=== PATIENT | female | born 1955 | race Caucasian/White ===

== ENCOUNTER 2017-12-17 03:43 | Outpatient (RCR) | payer OTHER, SELFPAY | END 2017-12-17 23:59 | disposition home or self-care (01) | LOC: PRC 03:43 | DX: J44.9 Chronic obstructive pulmonary disease, unspecified (principal); Z51.89 Encounter for other specified aftercare | CPT/HCPCS: G0424 ==

== ENCOUNTER 2018-01-13 13:42 | Outpatient (RCR) | payer OTHER, SELFPAY | END 2018-01-16 23:59 | disposition home or self-care (01) | LOC: PRC 13:42 | DX: J44.9 Chronic obstructive pulmonary disease, unspecified (principal); Z51.89 Encounter for other specified aftercare | CPT/HCPCS: G0424 ==

== ENCOUNTER 2019-06-09 11:33 | Emergency (ER) | payer OTHER, SELFPAY ==
[2019-06-09 11:00] VITALS: BP 152/81; PULSE 75; RESP 18; TEMP 35.8; O2SAT 98
[2019-06-09 11:25] LABS: Abs Immature Grans 0.01 k/cumm (0.0-0.09); Absolute Basophil Count 0.02 k/cumm (0.0-0.2); Absolute Eosinophil Count 0.11 k/cumm (0.0-0.7); Absolute Lymphocyte Count 1.77 k/cumm (1.2-3.4); Absolute Monocyte Count 0.49 k/cumm (0.11-0.7); Absolute Neutrophil Count 4.59 k/cumm (1.2-6.7); Basophils % 0.3; Eosinophils % 1.6; HCT 40.8 % (36.0-46.0); HGB 13.4 g/dL (12.0-15.5); Immature Grans % 0.1 %; Lymphocytes % 25.3; Mean Corp. HGB Concentration 32.8 g/dL (32.0-36.0); Mean Corpuscular Hemoglobin 27.9 pg (27.0-33.0); Mean Platelet Volume 9.8 fL (8.0-11.0); Neutrophils % 65.7; Platelet Count 261 x1000/uL (130-400); RBC Distribution Width 13.9 % (11.7-14.6); White Blood Cell Count 6.99 k/cumm (4.4-10.8)
--- NOTE | 2019-06-09 11:30 | ED.GENADUL_ITS ---
Discharge Plan Disposition Patient Disposition: HOME Discharge Details Chief Complaint: Dizzy/Sync Clinical Impression: Vertigo Primary Care Provider: Radha Ricks ED Provider: Teja Calzada Home Meds and New Rx's Prescriptions: New meclizine 25 mg tablet 25 mg PO TID PRN (Reason: dizziness) Qty: 30 RF: 0 Continued albuterol sulfate [Proventil HFA] 1 PUFF HFA aerosol inhaler 200 puff Inhalation Q6H PRN PRNRF: 0 fluticasone propion-salmeterol [Advair Diskus] 250-50 mcg/dose Blister With Device 1 inh INHALATION BID RF: 0 Spiriva with HandiHaler 18 mcg Capsule, W/Inhalation Device 18 mcg INHALATION DAILY PRNRF: 0 Discharge Instructions Instructions: Vertigo (ED) Additional Instructions: Please rest over the next few days. No driving or operating heavy machinery until symptoms completely resolved. Take meclizine as prescribed. Please contact your primary care physician to arrange follow-up. Return to the ER for any worsening or new concerning symptoms. Stand Alone Forms: Physical Therapy Referral Discharge Data Discharge Date/Time-TO BE ENTERED AT DEPARTURE: 06/09/19 17:04 Medical Decision Making 11:35 --64-year-old female former smoker with emphysema, here with dizziness described as feeling of being drunk over the past 10 days. Concern for likely neurologic etiology: Consider peripheral vestibular neuritis versus central subacute ischemic cerebellar stroke/mass. Vertical nystagmus is concerning as is negative headimpulse concerning. Consider cardiac etiology. Screening ECG was reviewed and interpreted by me: Sinus rhythm 65 bpm, normal axis, T wave inversions noted V1 and V2, no significant change from prior ECG 09/02, low voltage. Will obtain MRI of the brain and diagnostic labs. --Labs reviewed and nondiagnostic. Patient reassessed and stable. Orthostatic vital signs normal. Brain MRI was reviewed and interpreted by radiology: Negative Suspect peripheral vertigo. Patient to be given meclizine 25 mg orally. 16:30 --patient reassessed and noted to have significant improvement after meclizine. Plan will be for discharge with outpatient follow-up. I will refer to physical therapy for vestibular rehab should symptoms persist. I will prescribe meclizine for symptomatic relief. Disposition decision was made weighing the risks and benefits of hospitalization versus outpatient treatment, the risk for further decompensation, and the patient's wishes. The patient was stable and requested discharge. Prior to discharge, my usual and customary return precautions were reviewed with the patient - this included follow-up instructions and reason to return to the emergency department if condition worsens, does not improve as expected, or other new concerns arise. HPI General Mode of arrival: ambulatory . Date/Time Provider Initiated Documentation: 06/09/19 13:51 . Limitations to Documentation: no limitations . Information obtained by: patient . HPI Narrative: 64-year-old female here with chief complaint of dizziness. Patient notes for the past 10 days she has been feeling drunk. She has not consumed any alcohol. She specifically notes difficulty with balance and also feels lightheaded. Patient notes worse with certain positions including standing. Patient attributes symptoms to statin therapy which she has been on for a few months. She states that when she stopped taking statin symptoms seem to improve. She has not been taking any for the past few days and symptoms seem to be improving and then and this morning symptoms worsened. She had mild associated nausea earlier. She is no longer nauseous. No associated headache. No numbness or weakness. No abdominal pain. No chest pain or shortness of breath. She does have chronic emphysema. Related Data Home Medications Medication Instructions Recorded Confirmed albuterol sulfate [Proventil HFA] 200 puff INHALATION Q6H PRN PRN 08/31/15 06/09/19 Spiriva with HandiHaler 18 mcg INHALATION DAILY PRN 06/09/19 06/09/19 fluticasone propion-salmeterol 1 inh INHALATION BID 06/09/19 06/09/19 [Advair Diskus] meclizine 25 mg PO TID PRN #30 tab 06/09/19 Previous Rx's Medication Instructions Recorded meclizine 25 mg PO TID PRN #30 tab 06/09/19 Allergies Allergy/AdvReac Type Severity Reaction Status Date / Time cephalexin monohydrate Allergy Unverified 06/09/19 11:04 [From Keflex] Penicillins Allergy Unverified 06/09/19 11:04 Hezresj-Jih-Mxp Reductase AdvReac Severe Unverified 06/09/19 11:04 Inhibitor General Stated Complaint: Dizzy/Sync DOTTY: 3 Review of Systems All systems reviewed & are unremarkable except as noted in HPI and below Constitutional Constitutional: Denies fever(s) Cardiovascular Cardiovascular: Denies chest pain and Denies dyspnea Respiratory Respiratory: Denies dyspnea Genitourinary Genitourinary: Denies dysuria Neurologic Neurologic: Reports as per [facility] Social History Smoking/Tobacco Use Status: Former Tobacco Use Alcohol Intake: former Drug use: Never Substance use type: does not use Do you feel safe at home: Yes Do you feel safe in your relationship?: Yes Exam Const General: cooperative and no acute distress HENMT Head: normocephalic and atraumatic Mouth: moist mucous membranes Eyes Conjunctivae: normal conjunctivae Sclera: normal sclerae Neck Neck: trachea midline and supple Resp Auscultation: clear to auscultation bilaterally, no rales, no rhonchi and no wheezes Cardio Jugular venous pressure: no JVD Rate: regular rate and not tachycardic Rhythm: regular rhythm GI Palpation: soft, not firm, no guarding, no masses, not rigid and nontender Skin General skin exam: no rashes or lesions noted Neuro General: patient alert, patient awake, patient oriented x3 and tone normal Cranial Nerves: PERRL and other (Vertical nystagmus noted) Cognition: normal cognition Speech: speech normal Motor: strength 5/5 throughout Sensory Exam: no sensory deficits noted Coordination: zzlwks-lx-gobm test normal, vmxs-zr-sxwt test normal and other (Rapid alternating movements upper extremities intact) Other: patient leans with eyes closed to right, head impulse nl, skew neg Extrem General: no edema Psych Appearance: grossly normal Mental Status: mental status grossly normal Course Vital Signs Vital signs: Vital Signs Temperature 35.8 C L 06/09/19 11:00 Pulse 75 06/09/19 11:00 Respiratory Rate 18 06/09/19 11:00 Blood Pressure 152/81 H 06/09/19 11:00 Pulse Oximetry 98 06/09/19 11:00 Temperature 35.8 C L 06/09/19 11:00 Temperature Source Temporal Artery Scan 06/09/19 11:00 Pulse 75 06/09/19 11:00 Respiratory Rate 18 06/09/19 11:00 Respiratory Effort Non-Labored 06/09/19 11:07 Blood Pressure 152/81 H 06/09/19 11:00 Blood Pressure Position Sitting 06/09/19 11:00 Pulse Oximetry 98 06/09/19 11:00 Oxygen Delivery Method Room Air 06/09/19 11:00 Oxygen Flow Rate 0 06/09/19 11:00 Pain Level 4 06/09/19 11:00
[2019-06-09] MEDS: Lactated Ringers 500 ML 1000 ML IV (11:32)
[2019-06-09 11:37] LABS: ALT 33 U/L (14-59); AST 22 U/L (15-37); Albumin 3.4 g/dL (3.4-5.0); Alkaline Phosphatase 82 U/L (46-116); Anion Gap 9.2 mmol/L (3-11); BUN 16 mg/dL (7-18); Bilirubin, Total 0.4 mg/dL (0.2-1.0); CO2 26.8 mmol/L (21.0-32.0); CREATININE 1.22 mg/dL (0.55-1.02); Calcium 8.4 mg/dL (8.5-10.1); Chloride 106 mmol/L (98-107); Estimated GFR 44.66 (mL/min/1.73m2); Glucose 95 mg/dL (74-106); Potassium 3.9 mmol/L (3.5-5.1); Sodium 142 mmol/L (136-145); Total Protein 7.1 g/dL (6.4-8.2)
[2019-06-09 11:40] LABS: Troponin I < 0.05 ng/Ml (<0.06)
[2019-06-09 11:52] LABS: INR 1.1 (0.9-1.1); Prothrombin Time 10.7 sec (9.3-11.0)
[2019-06-09 11:53] LABS: Bilirubin Negative (Negative); Blood Small (Negative); Clarity Clear (Clear); Glucose Negative (Negative); Ketones Negative (Negative); Leukocyte Esterase Negative (Negative); Nitrite Negative (Negative); Specific Gravity <= 1.005 (1.005-1.025); Urobilinogen 0.2 EU/dL (Up TO 0.2)
[2019-06-09 12:04] VITALS: RESP 16
[2019-06-09 12:09] LABS: Bacteria Few HPF (Negative); RBC 0-2 HPF (0-2); WBC 0-2 HPF (0-5)
[2019-06-09 12:13] VITALS: BP 123/70; PULSE 79; RESP 16; TEMP 36.8; O2SAT 98
[2019-06-09 12:15] LABS: C & S Indicated? No/Sq. Contamination
[2019-06-09 12:16] LABS: Epithelial Cells Few HPF (Negative)
[2019-06-09 12:27] LABS: Casts Negative LPF (Negative); Crystals Negative HPF (Negative); Mucus Negative (Negative)
[2019-06-09 12:28] VITALS: BP 124/74; BP 134/76; BP 135/67; PULSE 63; PULSE 65; PULSE 78
[2019-06-09] MEDS: Gadoterate meglumine 20 ML VIAL 16 ML IVP (13:35)
--- NOTE | 2019-06-09 13:40 | DI.MRI_ITS ---
EXAM: MR BRAIN WO/W CLINICAL HISTORY: vertical nystagmus, dizzy 10 days, feels drunk. TECHNIQUE: Multiplanar multisequence MRI was performed. Post contrast T1 axial, sagittal and sol l sequences were also performed. COMPARISON: No exams were available for comparison FINDINGS: The brain parenchyma has a normal appearance. No hemorrhage, mass or infarct is seen. There are no abnormal areas of restricted diffusion. The ventricles are normal in size. There are no abnormal enhancing lesions. The venous sinuses and uefzoj-rz-Favvdz vasculature appear intact. The orbits a re unremarkable. The mastoid air cells are clear. There is a small mucous retention cysts are proba jonathon polyp in left maxillary sinus. The pituitary is normal in size. IMPRESSION: Negative MRI of the brain. DATA REPOSITORY:
[2019-06-09] MEDS: Meclizine 25 MG TAB PO (13:55)
[2019-06-09 14:01] VITALS: BP 114/71; PULSE 84; RESP 18; TEMP 36.6; O2SAT 97
[2019-06-09 15:56] LABS: Troponin I < 0.05 ng/Ml (<0.06)
--- NOTE | 2019-06-09 16:27 | PDOC.ERCMPRO ---
- If Service Date Differs Date of service: 06/09/19 Time of Service: 16:27 Care Management Progress Note CM meets with patient at the request of ED provider. Tonie reports she lives alone in [place] with her cat. She drives and is independent at baseline with her ADLs. She is a and receives all of her medical care through the [facility]. CM discusses possible needs with Tonie and she states she does not have any unmet needs at this time.
[2019-06-09 17:00] VITALS: BP 129/89; PULSE 81; RESP 16; TEMP 36.8; O2SAT 95
== END 2019-06-09 17:04 | disposition home or self-care (01) ==
PROVIDERS: Emergency Provider Student in an Organized Health Care Education/Training Program; PCP Nurse Practitioner Family
DX: R42 Dizziness and giddiness (principal); R11.0 Nausea
CPT/HCPCS: 36415; 70553; 80053; 93005; 96360; 96361; 99285; 81003; 81015; 84484; 85025; 85610; 93010; 99284

== ENCOUNTER 2020-08-05 01:53 | Outpatient (CLI) | payer OTHER, SELFPAY ==
--- NOTE | 2020-08-05 12:29 | DI.MAMMO_ITS ---
EXAM: MG MAMMO SCREENING CLINICAL HISTORY: SCREENING, [id number],Z12.39. TECHNIQUE: Bilateral full field digital CC and MLO mammographic images were obtained with 3D tomosyn thesis and utilizing computer aided detection (CAD). COMPARISON: Prior mammograms dating back to 2011, the most recent being July 2017. FINDINGS: There are no CAD designations. In the left breast there is an asymmetric density measuring 8 x 7 millimeters located 4 cm lateral to the nipple. Spot compression view recommended. In the opposite-right breast on 3D MLO imaging there is a nodular density located 6 cm in from the ni pple which measures 6 x 4 millimeters. Spot compression and ultrasound recommended. There are no malignant-appearing microcalcification groups in either breast. No new architectural di stortion or skin thickening-traction. IMPRESSION: Bilateral nodules. Bilateral spot compression views and ultrasound recommended. BI-RADS Category 0 - Assessment Incomplete: Need additional imaging evaluation Breast Density - Category B - Scattered areas of fibroglandular density Breast density Category C or D implies that the patient has dense breast tissue. Dense breast tissue can make it harder to find cancer on a mammogram. Dense breast tissue is also associated with an incr eased risk of breast cancer. This information about the result of the mammogram report was provided to the patient to raise their awareness. Use this report when you speak with the patient about their risks for breast cancer, which includes their family history. At that time, you may recommend additional screening tests (Ultrasoun d or MRI) as these tests may add significant information. A negative radiographic report should not delay biopsy if a dominant or clinically suspicious mass is present. Up to ten percent of cancers are not identified on mammography. A negative report may reinforce clinical impression. Adenosis and dense breasts may obscure an underlying neoplasm. False positive reports average 6 to 10%. Patient will receive a letter notifying them of these results.
== END 2020-08-05 02:13 ==
PROVIDERS: PCP Nurse Practitioner Family; Visit Provider Nurse Practitioner Family
DX: Z12.31 Encounter for screening mammogram for malignant neoplasm of breast (principal); R92.8 Other abnormal and inconclusive findings on diagnostic imaging of breast
CPT/HCPCS: 77063; 77067

== ENCOUNTER 2020-08-16 03:03 | Outpatient (CLI) | payer OTHER, SELFPAY ==
--- NOTE | 2020-08-16 | DI.US_ITS ---
Exam(s) US BREAST RT LIMITED US BREAST LT LIMITED MG MAMMO SCREEN CALL BACK BI EXAM: MG MAMMO SCREEN CALL BACK BI and bilateral breast ultrasound limited CLINICAL HISTORY: F/U MAMMO,[id number],LT BREAST ASYMMETRIC DENSITY,RT NODULAR DENSITY. TECHNIQUE: Craniocaudal and mediolateral oblique Full Field Digital Mammography views of the bilater al breast with Computer Aided Diagnosis followed by Tomosynthesis and bilateral breast ultrasound. COMPARISON: Comparison with prior examinations. FINDINGS: Mammography/Tomosynthesis: Masses/Architectural Distortion: No abnormality persists on the additional views of either breast. Microcalcifictions: No suspicious pleomorphic-type are seen. Skin Thickening/Nipple Retraction: None. Bilateral breast US: There was a negative targeted left breast ultrasound. Echotexture: Normal appearance of the glandular tissue. Shadowing: No suspicious foci. Cyst: A cluster of small simple cysts is seen in the right breast at the 10 o'clock position 2 cm fro m the nipple. Solid lesions: None seen. Ductal dilation: None. IMPRESSION: 1. No evidence of malignancy is noted. 2. Unless there is more urgent need, follow-up screening mammography is recommended, as per [employer] [place] guidelines. 3. The findings were discussed with the patient on the date of the examination. BI-RADS Category 2 - Benign Findings Breast Density - Category B - Scattered areas of fibroglandular density Breast density Category C or D implies that the patient has dense breast tissue. Dense breast tissue can make it harder to find cancer on a mammogram. Dense breast tissue is also associated with an incr eased risk of breast cancer. This information about the result of the mammogram report was provided to the patient to raise their awareness. Use this report when you speak with the patient about their risks for breast cancer, which includes their family history. At that time, you may recommend additional screening tests (Ultrasoun d or MRI) as these tests may add significant information. A negative radiographic report should not delay biopsy if a dominant or clinically suspicious mass is present. Up to ten percent of cancers are not identified on mammography. A negative report may reinforce clinical impression. Adenosis and dense breasts may obscure an underlying neoplasm. False positive reports average 6 to 10%. Patient will receive a letter notifying them of these results.
== END 2020-08-16 03:23 ==
PROVIDERS: PCP Nurse Practitioner Family; Visit Provider Nurse Practitioner Family
DX: Z12.31 Encounter for screening mammogram for malignant neoplasm of breast (principal); R92.8 Other abnormal and inconclusive findings on diagnostic imaging of breast; N60.11 Diffuse cystic mastopathy of right breast; N64.59 Other signs and symptoms in breast
CPT/HCPCS: 76642; 77063; 77067

== ENCOUNTER 2022-09-16 01:59 | Outpatient (CLI) | payer OTHER, SELFPAY ==
--- NOTE | 2022-09-16 09:25 | DI.MAMMO_ITS ---
Exam(s) MAMMO SCREENING EXAM: MAMMO SCREENING CLINICAL HISTORY: SCREENING, Z12.31, [id number] TECHNIQUE: Mammograms were interpreted according to the usual protocol including computer analysis w [facility] CAD system, tomosynthesis and C-view imaging. COMPARISON: 2013 through 2020 FINDINGS: The breasts are composed of scattered fibroglandular densities, Breast Density category B. No suspicious masses or suspicious microcalcifications are seen. No skin thickening or abnormal axillary lymph nodes are seen. There has been no significant change from prior exams. IMPRESSION: BI-RADS Category 1, Negative mammogram Yearly screening mammography is recommended. Breast Density - Category B, scattered fibroglandular densities. A negative radiographic report should not delay biopsy if a dominant or clinically suspicious mass is present. Up to ten percent of cancers are not identified on mammography. A negative report may reinforce clinical impression. Adenosis and dense breasts may obscure an underlying neoplasm. False positive reports average 6 to 10%. Patient will receive a letter notifying them of these results.
== END 2022-09-16 02:19 ==
PROVIDERS: PCP Nurse Practitioner Family; Visit Provider Nurse Practitioner
DX: Z12.31 Encounter for screening mammogram for malignant neoplasm of breast (principal)
CPT/HCPCS: 77063; 77067

== ENCOUNTER → 2023-09-20 02:42 | Outpatient (CLI) | payer OTHER, SELFPAY ==
--- NOTE | 2023-09-20 | DI.MAMMO_ITS ---
Exam(s) MAMMO SCREENING EXAM: MAMMO SCREENING CLINICAL HISTORY: SCREENING, Z12.31, [id number] TECHNIQUE: Bilateral full field digital CC and MLO mammographic images were obtained with 3D tomosyn thesis and utilizing computer aided detection (CAD). COMPARISON: Available for comparison. FINDINGS: Masses/Architectural Distortion: None seen. Microcalcifications: No suspicious pleomorphic-type are seen. Skin Thickening/Nipple Retraction: None. IMPRESSION: 1. No significant interval change with no specific features of malignancy noted. 2. Unless there is more urgent need, screening mammography is recommended, as per [employer] guidelines. BI-RADS Category 1 - Negative Breast Density - Category B - Scattered areas of fibroglandular density Breast density category C or D implies that the patient has dense breast tissue. Dense breast tissue is very common and is not abnormal but dense breast tissue can make it harder to find cancer on a ma mmogram. Also, dense breast tissue may increase their breast cancer risk. This information about the result of the mammogram report was provided to the patient to raise their awareness. Use this report when you speak with the patient about their risks for breast cancer, which includes their family hist ory. At that time, you may recommend for more screening tests (Ultrasound or MRI) as they might be us eful based on their risk. A negative radiographic report should not delay biopsy if a dominant or clinically suspicious mass is present. Up to ten percent of cancers are not identified on mammography. A negative report may reinforce clinical impression. Adenosis and dense breasts may obscure an underlying neoplasm. False positive reports average 6 to 10%. Patient will receive a letter notifying them of these results.
== END ==
PROVIDERS: PCP Nurse Practitioner Family; Visit Provider Nurse Practitioner
DX: Z12.31 Encounter for screening mammogram for malignant neoplasm of breast (principal)
CPT/HCPCS: 77063; 77067

== ENCOUNTER 2024-09-20 00:59 | Outpatient (CLI) | payer OTHER, SELFPAY ==
--- NOTE | 2024-09-20 | DI.MAMMO_ITS ---
Exam(s) MAMMO SCREENING EXAM: MAMMO SCREENING CLINICAL HISTORY: [id number] Z12.31 Screening TECHNIQUE: Bilateral full field digital CC and MLO mammographic images were obtained with 3D tomosyn thesis and utilizing computer aided detection (CAD). COMPARISON: Available for comparison. FINDINGS: Masses/Architectural Distortion: No suspicious masses or areas of architectural distortion are presen t. Microcalcifications: No suspicious pleomorphic-type are seen. Skin Thickening/Nipple Retraction: None. IMPRESSION: 1. No significant interval change with no specific features of malignancy noted. 2. Unless there is more urgent need, screening mammography is recommended, as per [employer] [employer] guidelines. BI-RADS Category 1 - Negative Breast Density - Category B - There are scattered areas of fibroglandular density. Breast density Category C or D implies that the patient has dense breast tissue. Dense breast tissue can make it harder to find cancer on a mammogram. Dense breast tissue is also associated with an incr eased risk of breast cancer. This information about the result of the mammogram report was provided to the patient to raise their awareness. Use this report when you speak with the patient about their risks for breast cancer, which includes their family history. At that time, you may recommend additional screening tests (Ultrasoun d or MRI) as these tests may add significant information. A negative radiographic report should not delay biopsy if a dominant or clinically suspicious mass is present. Up to ten percent of cancers are not identified on mammography. A negative report may reinforce clinical impression. Adenosis and dense breasts may obscure an underlying neoplasm. False positive reports average 6 to 10%. Patient will receive a letter notifying them of these results.
== END 2024-09-20 01:19 ==
PROVIDERS: PCP Nurse Practitioner Family; Visit Provider Nurse Practitioner
DX: Z12.31 Encounter for screening mammogram for malignant neoplasm of breast (principal); R92.323 Mammographic fibroglandular density, bilateral breasts
CPT/HCPCS: 77063; 77067